=== PATIENT | male | born 1955 | race Caucasian/White ===

== ENCOUNTER 2016-08-05 06:51 | Day surgery (SDC) | payer BC ==
[~2016-08-05] VITALS: Ht 182.9 cm; Wt 117.9 kg
[~2016-08-05 06:51] MED LIST: AMBIEN10 MG PO; ANAPROX275 MG OR; ANTI-INFLAMMATORY; BACTRIM DS1 TAB PO; BAYER ASPIRIN325 M1 PO; BOOSTRIX IM; CIPROFLOXACN500 MG PO; ETODOLAC200 MG OR; HYDROCO/APAP1 T12 OR; LEVAQUIN750 MG PO; LORAZEPAM0.5 MG PO; MUPIROCIN2 % EX; NEXIUM40 M1 PO; NO HOME MEDS; PERCOCET 5/325M1 TAB OR; PREDNISONE20 MG PO; TET/DIP TOX1 ML IM; ZOFRAN ODT4 MG OR; ZYRTEC-D AL1 OR; [UNRECOGNIZED DRUG - OTHER]; [UNRECOGNIZED DRUG - OTHER]; b12 complex
[2016-08-05 10:50] VITALS: BP 144/70
== END 2016-08-05 10:25 | disposition home or self-care (01) | DRG 951 ==
LOC: ENDO 06:51
PROVIDERS: ATTEND Surgery
PROC: 0DBP8ZX Excision of Rectum, Via Natural or Artificial Opening Endoscopic, Diagnostic (ICD-10-PCS; principal; 2016-08-05)
DX: Z12.11 Encounter for screening for malignant neoplasm of colon (principal); C20 Malignant neoplasm of rectum; I10 Essential (primary) hypertension; E11.9 Type 2 diabetes mellitus without complications; E78.5 Hyperlipidemia, unspecified

== ENCOUNTER 2016-08-24 10:21 | Emergency (ER) | payer BC ==
[~2016-08-24] VITALS: Ht 182.9 cm; Wt 120.0 kg
[2016-08-24] MEDS ORDERED: DOXYCYC MONO100 M1 PO (11:25)
[2016-08-24 11:32] VITALS: BP 160/78
== END 2016-08-24 11:38 | disposition home or self-care (01) | DRG 605 ==
LOC: ED 10:21
PROC: 0HQGXZZ Repair Left Hand Skin, External Approach (ICD-10-PCS; principal; 2016-08-24)
DX: S61.012A Laceration without foreign body of left thumb without damage to nail, initial encounter (principal); W26.0XXA Contact with knife, initial encounter; Y93.K9 Activity, other involving animal care; Y92.89 Other specified places as the place of occurrence of the external cause

== ENCOUNTER 2017-01-27 06:03 | Day surgery (SDC) | payer BC ==
[~2017-01-27] VITALS: Ht 177.8 cm; Wt 122.5 kg
[~2017-01-27 06:03] MED LIST changes: +DOXYCYC MONO100 M1 PO
[2017-01-27 08:09] VITALS: BP 124/63
== END 2017-01-27 08:28 | disposition home or self-care (01) | DRG 376 ==
LOC: ENDO 06:03
PROVIDERS: ATTEND Surgery
PROC: 0DBP8ZX Excision of Rectum, Via Natural or Artificial Opening Endoscopic, Diagnostic (ICD-10-PCS; principal; 2017-01-27)
DX: C20 Malignant neoplasm of rectum (principal); I10 Essential (primary) hypertension; E11.9 Type 2 diabetes mellitus without complications; E78.5 Hyperlipidemia, unspecified; Z92.21 Personal history of antineoplastic chemotherapy

== ENCOUNTER 2017-09-15 05:44 | Day surgery (SDC) | payer BC ==
[~2017-09-15] VITALS: Ht 182.9 cm; Wt 120.2 kg
[2017-09-15 11:31] VITALS: BP 142/66
== END 2017-09-15 08:45 | disposition home or self-care (01) | DRG 378 ==
LOC: ENDO 05:44 → ORM 08:15 → ENDO 08:45
PROVIDERS: ATTEND Surgery
PROC: 0DBP8ZX Excision of Rectum, Via Natural or Artificial Opening Endoscopic, Diagnostic (ICD-10-PCS; principal; 2017-09-15)
DX: K62.5 Hemorrhage of anus and rectum (principal); C20 Malignant neoplasm of rectum; K62.7 Radiation proctitis; Z92.3 Personal history of irradiation; Z92.21 Personal history of antineoplastic chemotherapy; Y84.2 Radiological procedure and radiotherapy as the cause of abnormal reaction of the patient, or of later complication, without mention of misadventure at the time of the procedure

== ENCOUNTER 2018-10-05 06:40 | Day surgery (SDC) | payer BC ==
[~2018-10-05 06:40] MED LIST changes: +LYRICA100 MG PO; +PROVENTIL108 MCG/AC; +VITAMIN B-123000 MCG SL
[2018-10-05 08:55] VITALS: BP 128/61
== END 2018-10-05 09:06 | disposition home or self-care (01) | DRG 951 ==
LOC: ENDO 06:40 → ORM 07:00 → ENDO 08:00
PROVIDERS: ATTEND Surgery
PROC: 0DBP8ZX Excision of Rectum, Via Natural or Artificial Opening Endoscopic, Diagnostic (ICD-10-PCS; principal; 2018-10-05)
DX: Z12.11 Encounter for screening for malignant neoplasm of colon (principal); K62.7 Radiation proctitis; I10 Essential (primary) hypertension; Y84.2 Radiological procedure and radiotherapy as the cause of abnormal reaction of the patient, or of later complication, without mention of misadventure at the time of the procedure; Z85.048 Personal history of other malignant neoplasm of rectum, rectosigmoid junction, and anus; Z92.21 Personal history of antineoplastic chemotherapy; Z92.3 Personal history of irradiation

== ENCOUNTER 2021-07-21 10:54 | Emergency (ER) | payer BC ==
[~2021-07-21] VITALS: Ht 182.9 cm; Wt 105.0 kg
[2021-07-21 11:14] VITALS: BP 186/79
[2021-07-21 11:16] VITALS: BP 170/75
[2021-07-21 11:31] VITALS: BP 150/66
[2021-07-21 11:45] VITALS: BP 160/64
[2021-07-21 12:03] VITALS: BP 151/65
[2021-07-21 12:16] VITALS: BP 154/64
[2021-07-21] MEDS ORDERED: BACTRIM DS1 TAB PO (13:42)
[2021-07-23] MEDS ORDERED: METHOCARBAMOL750 MG PO (10:21)
[2021-07-23] MEDS ORDERED: LISI20TA5 (10:21)
[2021-07-23] MEDS ORDERED: GLIPIZIDE ER5 M1 PO (10:21)
[2021-07-23] MEDS ORDERED: OXYCODONE5 M1 PO (10:21)
== END 2021-07-21 14:08 | disposition home or self-care (01) | DRG 605 ==
LOC: ED 10:54
DX: S80.812A Abrasion, left lower leg, initial encounter (principal); S80.852A Superficial foreign body, left lower leg, initial encounter; E11.9 Type 2 diabetes mellitus without complications; W20.8XXA Other cause of strike by thrown, projected or falling object, initial encounter; Y93.89 Activity, other specified; Z88.0 Allergy status to penicillin